=== PATIENT | male | born 1980 | race Caucasian/White ===

== ENCOUNTER → 2020-09-12 10:48 | Outpatient (BNVA) | payer SELFPAY | DX: Z76.89 Persons encountering health services in other specified circumstances (principal) ==

== ENCOUNTER → 2021-08-07 10:23 | Outpatient (BNVA) | payer OTHER, SELFPAY | PROVIDERS: Visit Provider Internal Medicine | DX: M79.671 Pain in right foot (principal) | CPT/HCPCS: 73610; 73630; 99202 ==

== ENCOUNTER → 2021-08-14 13:06 | Outpatient (BNVA) | payer OTHER, SELFPAY | PROVIDERS: Visit Provider Internal Medicine | DX: M79.671 Pain in right foot (principal) | CPT/HCPCS: 99213 ==

== ENCOUNTER → 2022-09-13 11:42 | Outpatient (BNVA) | payer OTHER, SELFPAY | DX: Z02.79 Encounter for issue of other medical certificate (principal) ==

== ENCOUNTER → 2023-04-18 10:07 | Outpatient (BNVA) | payer OTHER, SELFPAY | PROVIDERS: Visit Provider Internal Medicine | DX: S92.421A Displaced fracture of distal phalanx of right great toe, initial encounter for closed fracture (principal); X50.0XXA Overexertion from strenuous movement or load, initial encounter; W04.XXXA Fall while being carried or supported by other persons, initial encounter | CPT/HCPCS: 99202 ==

== ENCOUNTER → 2024-09-25 09:11 | Outpatient (BNVA) | payer OTHER, SELFPAY | PROVIDERS: Visit Provider Registered Nurse | DX: S60.041A Contusion of right ring finger without damage to nail, initial encounter (principal); X50.0XXA Overexertion from strenuous movement or load, initial encounter | CPT/HCPCS: 99203 ==

== ENCOUNTER → 2024-10-02 09:01 | Outpatient (BNVA) | payer OTHER, SELFPAY | PROVIDERS: Visit Provider Registered Nurse | DX: S60.041D Contusion of right ring finger without damage to nail, subsequent encounter (principal); X50.0XXD Overexertion from strenuous movement or load, subsequent encounter | CPT/HCPCS: 99213 ==

== ENCOUNTER 2024-10-29 11:19 | Outpatient (RCR) | payer OTHER, BC, SELFPAY ==
--- NOTE | 2024-10-12 14:09 | MHC.OT.OEV ---
[address] [phone] F: [phone] Occupational Therapy Evaluation Patient Name: Jason Espinosa Diagnosis: (R)4th digit contusion Date of Onset: 09/14/24 Date of Surgery: Attending Provider: Sharla Coats Prescribed Treatment: MD Follow Up Appointment: History of Current Condition: Patient is a 44 year old (R)hand dominate male referred by for an injury (DOI 09/14/2018) to his 4th finger. Patient stated that he works for [employer] in the the [employer] department. He was picking up a crate, grasping the rim of it when he heard a pop and he dropped the crate. He denies numbness/tingling and states he has difficulty with grasping and gripping items. He noted that in the morning it feels Stiff and sore . 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 (I)ADLs/IADLs No hobbies Living Situation, Family and/or Social Support: Lives with parents Current Level of Function and Occupation Self Care, Employment, Leisure: Continues to work however he stated it slows him down min (A)IADLs Sleep: (I) Driving: (I) Vision: Balance: Pain Assessment Pain Score: 4 Pain Scale Used: Numeric (0 - 10) Pain Location and Description: (R) 4th PIP 2/10 at rest 4/10 during activity dull Aggravating Factors: Alleviating Factors: No Skin and Soft Tissue Assessment Skin and Soft Tissue: Comments: Skin intact, no bruising present, minimal edema present at the PIP Nerve assessment Ulnar Nerve: Median Nerve: Radial Nerve: Comments: Sensory Assessment Temperature: Light Touch: Proprioception: Vibration: Comments: [place] monofilament test= WFL Edema Assessment Upper Extremity: Lower Extremity: Comments: edema present in the 4th digit PIP Dexterity Assessment Dexterity: Right Impaired Comments: Functional dexterity Test= 28.53 Special Tests Comments: AROM(PROM) Strength Cervical Cervical Flexion: Cervical Extension: Cervical Lateral Flexion: Cervical Rotation: Comments: Shoulder Flexion: Extension: Abduction: Internal Rotation: External Rotation: Comments: WFL Flexion: Extension: Abduction: Internal Rotation: External Rotation: Comments: WFL Elbow Flexion: Extension: Pronation: Supination: Comments: WFL Flexion: Extension: Pronation: Supination: Comments: WFL Wrist Flexion: Extension: Ulnar Deviation: Radial Deviation: Comments: WFL Flexion: Extension: Ulnar Deviation: Radial Deviation: Comments: WFL Thumb Thumb CMC Flexion: Thumb MCP Flexion: Thumb IP Flexion: Radial Abduction: [place] Abduction: [place] ([place] 0-10): Comments: WFL Digits Index MCP: PIP: DIP: Long MCP: PIP: DIP: Ring MCP: WFL PIP: 82* DIP: 33* Small MCP: PIP: DIP: Comments: WFL Gross Grasp: (R)56.5lbs., (L)58 lbs. Lateral Pinch: (R)18lbs. Two-Point Pinch: (R)9lbs. Three-Jaw Rudy: (R)12lbs. 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 Barriers to Learning: Readiness for Learning: Who was educated? Comments: Plan of Care Assessment: Patient is a 44 y/o male who sustained an injury to his 4th digit while at work. He reports a dull pain that is 4/10 during movement with mild edema at the PIP. Based on initial OT evaluation patient presents with impaired digit ROM, impaired strength, pain, and edema. Patient will benefit from a short course of skilled OT in order to increase ROM, increases strength and decrease pain and to achieve his PLOF of (I). Thank you for your referral. STG Duration: 2 weeks Short Term Goals: Patient will have full (R) 4th digit AROM patient will be (I) with HEP patient will report 0/10 pain in the (R) 4th digit LTG Duration: Correction Goals: Frequency and Duration: The patient will be seen 2x a week for 2 weeks Treatment Plan: Therapeutic Exercise Therapeutic Activity Home Exercise Program Splinting Patient Education Edema Control ADL Training Ultrasound NMES Paraffin Fluidotherapy MHP Cold Packs Joint Mobilization Soft Tissue Mobilization Kinesiotaping Other (see comments) skilled OT eval and treat Electronically Signed By: CRISTIANA Odell/Julien, CLT Reviewed/agree with student documentation: Therapist: Please sign and return to therapist, Thank you for your referral.
--- NOTE | 2024-10-30 10:24 | MHC.OT.DC ---
[address] [phone] F: [phone] Occupational Therapy Discharge Note Patient Name: Jason Espinosa Provider: Sharla Coats Diagnosis: (R)4th digit contusion Date of Surgery: Date of Evaluation: 10/12/24 Date of Discharge: Treatments to Date: 5 Cancellations to Date: No Shows to Date: Discharge Status: Achieved Goals Improved Function Independent with HEP Discharge Summary: Patient is d/c from skilled OT services as he has achieved his maximal potential in skilled in therapy. Overall patient has decreased his pain level from a 4/10 to a 2/10 and has increased his ROM and the edema is slowly dissipating. He is (I) with HEP and tolerating strengthening well. At this time no further intervention is required. He was a pleasure to work with. Thank you for your referral. Electronically Signed By: CARON Odell CLT Reviewed/agree with student documentation: Therapist: CARON Odell CLT Please Sign and return to therapist, thank you for your referral.
== END 2024-10-30 10:24 | disposition home or self-care (01) ==
LOC: HO.OT 11:19
PROVIDERS: PCP Internal Medicine; Visit Provider Registered Nurse
DX: S60.041D Contusion of right ring finger without damage to nail, subsequent encounter (principal)
CPT/HCPCS: 97110; 97165

== ENCOUNTER → 2024-10-30 09:18 | Outpatient (BNVA) | payer OTHER, SELFPAY | PROVIDERS: PCP Internal Medicine; Visit Provider Registered Nurse | DX: S60.041D Contusion of right ring finger without damage to nail, subsequent encounter (principal); X50.0XXD Overexertion from strenuous movement or load, subsequent encounter | CPT/HCPCS: 99213 ==

== ENCOUNTER → 2024-11-27 09:18 | Outpatient (BNVA) | payer OTHER, SELFPAY | PROVIDERS: PCP Internal Medicine; Visit Provider Registered Nurse ==